=== PATIENT | female | born 1985 ===

== ENCOUNTER 2022-09-25 11:59 | Outpatient (CLI) | payer OTHER | END 2022-09-25 12:06 | disposition home or self-care (01) | LOC: SONOGRAMA 11:59 | DX: M75.81 Other shoulder lesions, right shoulder (principal); S93.432D Sprain of tibiofibular ligament of left ankle, subsequent encounter ==

== ENCOUNTER 2024-05-11 08:05 | Outpatient (CLI) | payer OTHER | END 2024-05-11 08:13 | disposition home or self-care (01) | LOC: MAMO-SONO 08:05 | PROVIDERS: ATTEND Urology | DX: N60.01 Solitary cyst of right breast (principal); N60.02 Solitary cyst of left breast; Z12.31 Encounter for screening mammogram for malignant neoplasm of breast ==